=== PATIENT | male | born 1945 | race Caucasian/White ===

== ENCOUNTER 2018-04-13 06:14 | Emergency (ER) | payer MEDICARE, OTHER ==
--- NOTE | 2018-04-13 06:38 | Emergency Department Record ---
History of Present Illness - General Chief complaint: Weakness Stated complaint: CALF CRAMPING/SHAKING/WEAKNESS Time Seen by Provider: 04/13/18 06:32 Source: Patient Mode of Arrival: Ambulatory Limitations: No limitations - History of Present Illness Initial comments: 72 yo male presents to ED for evaluation of weakness and "feeling shaky all over ". Patient reports that he felt as though he was going to pass out and laid down on the floor. Patient denies fevers, chills, cough, chest pain, abdominal pain, or recent illness. Patient denies any recent medication changes. Patient denies focal weakness or syncope on examination. MD Complaint: Generalized weakness Onset/Timin -: Hour(s) Location: Generalized Severity: Moderate Consistency: Constant Improves with: None Worsens with: None Associated Symptoms: Denies other symptoms - [place] Coma Scale Eye Response: (4) Open spontaneously Motor Response: (6) Obeys commands Verbal Response: (5) Oriented Reynaldo Total: 15 - Related Data Home Medications Medication Instructions Recorded Confirmed Last Taken Atorvastatin Calcium [Lipitor] 10 mg PO QHS 04/13/18 04/13/18 Unknown Lisinopril/Hydrochlorothiazide 1 each PO DAILY 04/13/18 04/13/18 Unknown [Lisinopril-Hctz 20-25 mg Tab] Allergies Allergy/AdvReac Type Severity Reaction Status Date / Time sulfamethoxazole Allergy Intermediate Rash, Unverified 01/02/18 12:04 [From Bactrim] fever, chills trimethoprim [From Bactrim] Allergy Intermediate Rash, Unverified 01/02/18 12:04 fever, chills codeine AdvReac Intermediate Nausea Unverified 01/02/18 12:04 diclofenac AdvReac Intermediate Stomach Unverified 01/02/18 12:04 pains Travel Screening - Travel/Exposure Within Last 30 Days Have you traveled within the last 30 days?: No Review of Systems Constitutional: Reports: Chills. Denies: Fever, Malaise, Night sweats Eyes: Denies: Eye discharge, Eye pain ENT: Denies: Congestion, Ear pain, Epistaxis Respiratory: Denies: Cough, Dyspnea Cardiovascular: Denies: Chest pain, Dyspnea on exertion Endocrine: Denies: Fatigue, Heat or cold intolerance Gastrointestinal: Denies: Abdominal pain, Nausea, Vomiting Genitourinary: Denies: Incontinence, Retention Musculoskeletal: Denies: Arthralgia, Back pain Skin: Denies: Bruising, Change in color Neurological: Denies: Abnormal gait, Confusion, Headache, Seizure Psychiatric: Denies: Anxiety Hematological/Lymphatic: Denies: Anemia, Blood Clots Past Medical History - SOCIAL HISTORY Smoking Status: Never smoker Alcohol Use: None Drug Use: None - RESPIRATORY Hx Respiratory Disorders: No - CARDIOVASCULAR Hx Cardio Disorders: Yes Hx Hypertension: Yes - NEURO Hx Neuro Disorders: No - GI Hx GI Disorders: No - Hx Genitourinary Disorders: Yes Hx Renal Disease: Yes (Stage 3a) - ENDOCRINE Hx Endocrine Disorders: No - MUSCULOSKELETAL Hx Musculoskeletal Disorders: No - PSYCH Hx Psych Problems: No - HEMATOLOGY/ONCOLOGY Hx Hematology/Oncology Disorders: No Family Medical History Any Significant Family History?: Yes Hx Cancer: Brother/Sister Hx HTN: Mother Physical Exam - General General Appearance: Alert, Oriented x3, Cooperative, Mild distress, Other (Mild resting tremor on examination) Limitations: No limitations - Head Head exam: Atraumatic, Normocephalic, Normal inspection Head exam detail: negative: Abrasion, Contusion, Arellano's sign, General tenderness, Hematoma, Laceration - Eye Eye exam: Normal appearance. negative: Conjunctival injection, Periorbital swelling, Periorbital tenderness, Scleral icterus - ENT Ear exam: negative: Auricular hematoma, Auricular trauma Nasal Exam: negative: Active bleeding, Discharge, Dried blood, Foreign body Mouth exam: negative: Drooling, Laceration, Muffled voice, Tongue elevation - Neck Neck exam: Normal inspection. negative: Meningismus, Tenderness - Respiratory Respiratory exam: Normal lung sounds bilaterally. negative: Rales, Respiratory distress, Rhonchi, Stridor - Cardiovascular Cardiovascular Exam: Regular rate, Normal rhythm, Normal heart sounds - GI/Abdominal GI/Abdominal exam: Soft. negative: Rebound, Rigid, Tenderness - Rectal Rectal exam: Deferred - exam: Deferred - Extremities Extremities exam: Normal inspection. negative: Calf tenderness, Pedal edema, Tenderness - Back Back exam: Denies: CVA tenderness (R), CVA tenderness (L) - Neurological Neurological exam: Alert, Oriented X3. negative: Motor sensory deficit - Psychiatric Psychiatric exam: Normal affect, Normal mood - Skin Skin exam: Normal color. negative: Abrasion Type of lesion: negative: abrasion Course Vital Signs 04/13/18 06:16 Temperature 97.9 F Pulse Rate 61 Respiratory 20 Rate Blood Pressure 146/84 Pulse Ox 98 - Reevaluation(s) Reevaluation #1: 04/13/18 06:33 EKG: NSR 55 Normal axis, QRS [address]-T wave changes Reevaluation #2: 04/13/18 06:58 Laboratory studies were reviewed: Hgb 12.0 (at baseline) AG 17 BUN 1.4 (at baseline) Labs are otherwise grossly unremarkable for an acute process. Patient was reassessed, reports that he is feeling much better. Patient easily stands to provide UA sample without vertigo or ataxia, tremors have resolved. Reevaluation #3: 04/13/18 07:23 UA was reviewed and appears negative for infection or hematuria. Patient reassessed and reports that he feels much improved. Patient has no focal deficit to suggest acute CVA on examination, and appears stable for discharge at this time. Medical Decision Making - Lab Data Result diagrams: 04/13/18 06:33 04/13/18 06:33 Disposition Disposition: Discharge Clinical Impression: Cramps of lower extremity, Weakness Disposition: Home, Self-Care Condition: (2) Stable Instructions: Weakness (ED) Additional Instructions: Return to ED if your symptoms worsen or if you have any concerns. Follow-up with your family doctor in 1-3 days as directed. Forms: Patient Portal Access Time of Disposition: 07:24 Quality - Quality Measures Quality Measures: N/A - Blood Pressure Screening Does Patient Have Any of the Following: No Blood Pressure Classification: Pre-Hypertensive BP Reading Systolic Measurement: 146 Diastolic Measurement: 84 Screening for High Blood Pressure: < Pre-Hypertensive BP, F/U Documented > [ [id number]] Pre-Hypertensive Follow-up Interventions: Referral to alternative/primary care provider.
[2018-04-13 06:40] LABS: BASO % 0.6 % (0-6); EOS % 4.8 % (0-6); GRAN % 57.2 % (47-80); HEMATOCRIT 35.4 % (42.0-52.0); LYMPH % 24.6 % (16-45); MEAN CELL VOLUME 88.5 fl (81-97); MEAN CORPUSCULAR HGB CONC 33.9 g/dl (32-36); MEAN PLATELET VOLUME 9.7 fl (7.4-10.4); MONO % 12.8 % (0-9); PLATELET COUNT 248 K/uL (130-400); RED CELL DISTRIBUTION WIDTH 12.2 % (11.5-14.5); WHITE BLOOD COUNT W/O DIFF 5.2 K/uL (4.2-12.2)
[2018-04-13] MEDS ORDERED: 0.9 % SODIUM CHLORIDE 1000ML 500 ML IV SCH (06:45)
[2018-04-13 06:49] LABS: BLOOD UREA NITROGEN 22 mg/dL (8-23)
[2018-04-13 06:50] LABS: CREATININE 1.4 mg/dL (0.7-1.2); EST GLOMERULAR FILTRATION RATE 53 mL/min; TOTAL PROTEIN 7.1 g/dL (6.6-8.7)
[2018-04-13 06:52] LABS: GLUCOSE,RANDOM 112 mg/dL (74-109)
[2018-04-13 06:55] LABS: ALB/GLOB RATIO 1.8 (1.1-1.8); ALBUMIN 4.6 g/dL (4.0-5.0); ALKALINE PHOSPHATASE 96 U/L (40-129); ALT/SGPT 18 U/L (<41); AST/SGOT 18 U/L (10.0-50.0)
[2018-04-13 07:09] LABS: URINE APPEARANCE CLEAR; URINE BILIRUBIN NEGATIVE (NEGATIVE); URINE BLOOD NEGATIVE (NEGATIVE); URINE COLOR YELLOW; URINE GLUCOSE (UA) NEGATIVE (NEGATIVE); URINE KETONE NEGATIVE (NEGATIVE); URINE LEUKOCYTE ESTERASE NEGATIVE (NEGATIVE); URINE NITRITE NEGATIVE (NEGATIVE); URINE PROTEIN NEGATIVE (NEGATIVE); URINE UROBILINOGEN 0.2 E.U./dL (0.20 - 1.00)
== END 2018-04-13 07:56 | disposition home or self-care (01) ==
LOC: ER 06:14
DX: R25.2 Cramp and spasm (principal); R53.1 Weakness; R42 Dizziness and giddiness; I10 Essential (primary) hypertension
CPT/HCPCS: 80053; 81003; 84484; 85025; 93005; 93010; 96360; 99284; J7030

== ENCOUNTER 2018-04-24 16:54 | Emergency (ER) | payer MEDICARE, OTHER ==
[2018-04-24] MEDS ORDERED: PREDNISONE 20 MG TAB PO ONE (17:17)
[2018-04-24] MEDS ORDERED: DIPHENHYDRAMINE HCL 25 MG CAPSULE PO ONE (17:17)
--- NOTE | 2018-04-24 17:21 | Emergency Department Record ---
History of Present Illness - General Chief complaint: Facial Swelling Stated complaint: LIPPS SWELLING Time Seen by Provider: 04/24/18 17:07 Source: Patient Mode of Arrival: Ambulatory Limitations: No limitations - History of Present Illness Initial Comments: The patient is here due to facial and lip swelling today. He first had L facial buccal swelling which was present upon waking up today. He did see his PCP at 11am and was told to use ice on the area. That since has improved significantly but then about 2 hours ago his upper lip became swollen. He has had no tongue swelling, ELMER, SOB, or difficulty swallowing. The patient has been on Lisinopril for years and did have a minor lip swelling reaction in the past. He also denies any CP or SOB. MD Complaint: Allergic reaction, Facial swelling Onset/Timin -: Days(s) Exposure: Unknown Symptoms: Lip swelling Severity: Mild, Moderate Treatment Prior to Arrival: None, Topical medicine - Related Data Previous Rx's Medication Instructions Recorded Prednisone [Prednisone 20Mg] 40 mg PO DAILY #6 tab 04/24/18 Allergies Allergy/AdvReac Type Severity Reaction Status Date / Time sulfamethoxazole Allergy Intermediate Rash, Verified 04/24/18 17:00 [From Bactrim] fever, chills trimethoprim [From Bactrim] Allergy Intermediate Rash, Verified 04/24/18 17:00 fever, chills codeine AdvReac Intermediate Nausea Verified 04/24/18 17:00 diclofenac AdvReac Intermediate Stomach Verified 04/24/18 17:00 pains Travel Screening - Travel/Exposure Within Last 30 Days Have you traveled within the last 30 days?: No - Travel/Exposure Within Last Year Have you traveled outside the [place] in the last year?: No - Additonal Travel Details Have you been exposed to anyone with a communicable illness?: No - Travel Symptoms Symptom Screening: None Review of Systems Constitutional: Denies: Chills, Fever Eyes: Denies: Eye discharge ENT: Denies: Congestion Respiratory: Denies: Cough, Dyspnea Cardiovascular: Denies: Chest pain Past Medical History - SOCIAL HISTORY Smoking Status: Never smoker Alcohol Use: None Drug Use: None - RESPIRATORY Hx Respiratory Disorders: No - CARDIOVASCULAR Hx Cardio Disorders: Yes Hx Hypertension: Yes - NEURO Hx Neuro Disorders: No - GI Hx GI Disorders: No - Hx Genitourinary Disorders: Yes Hx Renal Disease: Yes (Stage 3a) - ENDOCRINE Hx Endocrine Disorders: No - MUSCULOSKELETAL Hx Musculoskeletal Disorders: No - PSYCH Hx Psych Problems: No - HEMATOLOGY/ONCOLOGY Hx Hematology/Oncology Disorders: No Family Medical History Any Significant Family History?: Yes Hx Cancer: Brother/Sister Hx HTN: Mother Physical Exam - General General Appearance: Alert, Oriented x3, Cooperative, No acute distress - Head Head exam: Atraumatic, Normocephalic, Normal inspection - Eye Eye exam: Normal appearance, PERRL, EOMI - ENT Mouth exam: Tongue normal. negative: Normal external inspection (There is mild upper lip swelling.), Tongue elevation Teeth exam: Normal inspection Throat exam: Normal inspection. negative: Tonsillar erythema, Tonsillar exudate - Neck Neck exam: Normal inspection, Full ROM. negative: Lymphadenopathy, Tenderness - Respiratory Respiratory exam: Normal lung sounds bilaterally. negative: Respiratory distress - Cardiovascular Cardiovascular Exam: Regular rate, Normal rhythm, Normal heart sounds Course Vital Signs 04/24/18 17:02 Temperature 97.9 F Pulse Rate 73 Respiratory 18 Rate Blood Pressure 134/81 Pulse Ox 99 - Reevaluation(s) Reevaluation #1: The patient is doing very well at this time. He has no ELMER, SOB, or difficulty swallowing. His tongue is normal and his upper lip is mildly improved. The patient does have an appointment tomorrow with his [facility] so he is to stop the Lisinopril and monitor his BP. He is also to see his PCP later this week for recheck also. 04/24/18 18:28 Medical Decision Making - Lab Data Result diagrams: 04/24/18 17:25 04/24/18 17:25 Disposition Disposition: Discharge Clinical Impression: Angioedema Qualifiers: Encounter type: initial encounter Qualified Code(s): T78.3XXA - Angioneurotic edema, initial encounter Disposition: Home, Self-Care Condition: (2) Stable Instructions: Angioedema (ED) Additional Instructions: Please do NOT take any more Lisinipril and monitor your BP twice a day. Take Benadryl 25 mg TID for 5 days and add the Prednisone starting tomorrow. Please see your [facility] tomorrow as planned and also see Dr. Mejia on Sunday or Sunday to see if you need to be on any blood pressure medicine. Return to the ER for any worsening symptoms or swelling. Prescriptions: Prednisone [Prednisone 20Mg] 40 mg PO DAILY #6 tab Forms: Patient Portal Access Time of Disposition: 18:32 Quality - Quality Measures Quality Measures: N/A - Blood Pressure Screening View Details: Yes Does Patient Have Any of the Following: Active Dx of HTN Blood Pressure Classification: Pre-Hypertensive BP Reading Systolic Measurement: 134 Diastolic Measurement: 81 Screening for High Blood Pressure: Patient Exclusion, Hx of HTN [G9744]
[2018-04-24 17:32] LABS: BASO % 0.6 % (0-6); EOS % 2.7 % (0-6); GRAN % 68.9 % (47-80); HEMATOCRIT 32.5 % (42.0-52.0); HEMOGLOBIN 11.3 gm/dl (14.0-18.0); LYMPH % 18.4 % (16-45); MEAN CELL VOLUME 87.4 fl (81-97); MEAN CORPUSCULAR HGB CONC 34.8 g/dl (32-36); MEAN PLATELET VOLUME 8.7 fl (7.4-10.4); MONO % 9.4 % (0-9); PLATELET COUNT 264 K/uL (130-400); RED BLOOD COUNT 3.72 M/uL (4.40-5.70); WHITE BLOOD COUNT W/O DIFF 4.9 K/uL (4.2-12.2)
[2018-04-24 17:33] LABS: MEAN CORPUSCULAR HEMOGLOBIN 30.3 pg (27-33)
[2018-04-24 17:45] LABS: CREATININE 1.4 mg/dL (0.7-1.2)
== END 2018-04-24 18:40 | disposition home or self-care (01) ==
LOC: ER 16:54
DX: T78.3XXA Angioneurotic edema, initial encounter (principal); T46.4X5A Adverse effect of angiotensin-converting-enzyme inhibitors, initial encounter; I10 Essential (primary) hypertension
CPT/HCPCS: 99283 ×2; 85025; 80048; J7512